=== PATIENT | female | born 1945 | race Caucasian/White ===

== ENCOUNTER 2018-03-20 11:00 | Outpatient (CLI) | payer OTHER | END 2018-03-20 11:02 | disposition home or self-care (01) | LOC: SONOGRAMA 11:00 | DX: N84.0 Polyp of corpus uteri (principal); N63.10 Unspecified lump in the right breast, unspecified quadrant; N63.20 Unspecified lump in the left breast, unspecified quadrant; E66.3 Overweight; M89.8X0 Other specified disorders of bone, multiple sites ==